=== PATIENT | female | born 1975 | race African-American/Black ===

== ENCOUNTER 2022-06-27 16:19 | Emergency (ER) | payer OTHER ==
[2022-06-27 16:45] VITALS: RESP 18; TEMP 98
--- NOTE | 2022-06-27 17:29 | XR ---
EXAMINATION TYPE: XR toes RT DATE OF EXAM: 06/27/2022 5:12 PM INDICATION: Patient age:Female; 46 years old; Reason for study: pain; COMPARISON: None TECHNIQUE: The right toe was examined in the AP, oblique, and lateral projections. FINDINGS: No evidence of any acute osseous pathology. No evidence of soft tissue swelling. Joints are preserve d. Minimal degeneration changes first digit interphalangeal joint and metatarsophalangeal joint. IMPRESSION: No evidence of acute fracture. Minimal osteoarthrosis changes.
[2022-06-27] MEDS ORDERED: ACETAMINOPHEN TAB 500 MG TAB PO STA (18:38)
--- NOTE | 2022-06-27 18:42 | ED ---
General Adult HPI - General Chief complaint: Extremity Injury, Lower Stated complaint: toe injury, hypertension Time Seen by Provider: 06/27/22 18:25 Source: patient, RN notes reviewed, old records reviewed Mode of arrival: ambulatory Limitations: no limitations - History of Present Illness Initial comments: Patient is a 46-year-old female with past medical history remarkable for hypertension who presents from [place] over concern for stubbing her right big toe. States she started today on the step. She is requesting an x-ray as well as a surgical boot. Denies any other injuries. Endorses pain in her right big toe. Does have normal range of motion of the right big toe. Denies any sensory deficits. No other injuries at this time. - Related Data Allergies Allergy/AdvReac Type Severity Reaction Status Date / Time cephalexin [From Keflex] Allergy Unknown Verified 06/27/22 16:45 ibuprofen Allergy Unknown Verified 06/27/22 16:45 naproxen [From Naprosyn] Allergy Unknown Verified 06/27/22 16:45 Review of Systems ROS Statement: Those systems with pertinent positive or pertinent negative responses have been documented in the HPI. Review of Systems: CONST: Denies fever EYES: Denies blurry vision ENT: Denies nasal congestion C/V: Denies Chest pain RESP: Denies shortness of breath GI: Denies abdominal pain : Denies dysuria SKIN: Denies rash. MSK: Endorses right big toe pain. NEURO: Denies headache ROS Other: All systems not noted in ROS Statement are negative. Past Medical History Past Medical History: Hypertension History of Any Multi-Drug Resistant Organisms: None Reported Past Psychological History: No Psychological Hx Reported Smoking Status: Current every day smoker Past Alcohol Use History: None Reported Past Drug Use History: Cocaine, Marijuana General Exam - General Exam Comments Initial Comments: General: Appears in no acute distress. HEAD: Normal with no signs of head trauma. EYES: EOMI ENT: Normal oropharynx RESPIRATORY: No respiratory distress C/V: Regular rate and rhythm. Peripheral pulses 2+ intact throughout. ABD: Nondistended EXT: Normal range of motion, no obvious deformity. Tenderness to palpation over the distal aspect of the right big toe. SKIN: No rashes or lesions observed on exposed skin. NEURO: Alert and oriented 4. Limitations: no limitations Course Vital Signs 06/27/22 06/27/22 16:41 19:13 Temperature 98 F Pulse Rate 92 81 Respiratory 18 18 Rate Blood Pressure 144/97 149/96 O2 Sat by Pulse 98 98 Oximetry Medical Decision Making - Medical Decision Making Based on the patient's presentation and physical exam, I am concerned for a rig ht big toe injury. X-ray of the right great toe was already obtained while the patient was in triage and was interpreted by myself as revealing no evidence of acute fracture or traumatic injury. I did discuss this finding with the patient. I believe it is safer to be discharged home. She has no neurovascular compromise, and no obvious injury. Possibilities a sprain. She is requesting a surgical shoe which will be provided. She'll also be given dose Tylenol prior to discharge. Vital signs are within acceptable limits. Recommended follow-up with her PCP. Discussed icing it, as well as elevation when not ambulating. She expressed understanding. I instructed the patient to follow up with their PCP in the next 1-3 days. I explained that the patient should return to the emergency department if they experience any worsening symptoms. Strict return precautions were discussed with the patient. The patient expressed understanding of these instructions. I answered all questions that the patient had. The patient was discharged home in good condition with their prescriptions and follow up information. Disposition Clinical Impression: Toe pain Disposition: HOME SELF-CARE Condition: Good Instructions (If sedation given, give patient instructions): Arthralgia (ED) Is patient prescribed a controlled substance at d/c from ED?: No Referrals: None,Stated [Primary Care Provider] - 1-2 days Vanna Haddad MD [REFERRING] - 1-2 days Time of Disposition: 18:40
[2022-06-27 19:14] VITALS: BP 149/96; PULSE 81
== END 2022-06-27 19:14 | disposition home or self-care (01) ==
LOC: EC 16:19
DX: M79.674 Pain in right toe(s) (principal); I10 Essential (primary) hypertension; F17.200 Nicotine dependence, unspecified, uncomplicated; F12.90 Cannabis use, unspecified, uncomplicated; Z88.1 Allergy status to other antibiotic agents; Z88.6 Allergy status to analgesic agent
CPT/HCPCS: 99283

== ENCOUNTER 2022-06-28 21:06 | Emergency (ER) | payer OTHER ==
[2022-06-28 21:31] VITALS: RESP 18
[2022-06-28] MEDS ORDERED: KETOROLAC 15 MG/ML 1 ML VIAL IM STA (21:58)
[2022-06-28] MEDS ORDERED: LIDOCAINE 1% INJ 10MG/ML (30 ML VIAL-PF) SQ STA (21:59)
[2022-06-28] MEDS ORDERED: CLINDAMYCIN 150 MG CAP PO STA (22:29)
--- NOTE | 2022-06-28 23:01 | ED ---
General Adult HPI - General Chief complaint: Skin/Abscess/Foreign Body Stated complaint: Genital cyst Time Seen by Provider: 06/28/22 21:41 Source: patient Mode of arrival: ambulatory Limitations: no limitations - History of Present Illness Initial comments: Patient is a 46-year-old female who presents from [facility] vaginal cyst. Patient noticed cyst 3 days ago which has been growing in size. Patient does report history of cyst in this location. She denies vaginal discharge, burning with urination, increased urinary frequency/urgency. She does not have concern for sexual transmitted infections. Denies fever, chills, nausea, vomiting. Patient does not have a primary care or slasher tender helper. - Related Data Previous Rx's Medication Instructions Recorded Clindamycin [Cleocin] 300 mg PO Q6H 7 Days #56 cap 06/28/22 Allergies Allergy/AdvReac Type Severity Reaction Status Date / Time cephalexin [From Keflex] Allergy Unknown Verified 06/28/22 21:31 ibuprofen Allergy Unknown Verified 06/28/22 21:31 naproxen [From Naprosyn] Allergy Unknown Verified 06/28/22 21:31 Review of Systems ROS Statement: Those systems with pertinent positive or pertinent negative responses have been documented in the HPI. ROS Other: All systems not noted in ROS Statement are negative. Past Medical History Past Medical History: Hypertension History of Any Multi-Drug Resistant Organisms: None Reported Past Psychological History: No Psychological Hx Reported Smoking Status: Current every day smoker Past Alcohol Use History: None Reported Past Drug Use History: Cocaine, Marijuana General Exam Limitations: no limitations General appearance: alert, in no apparent distress Head exam: Present: atraumatic, normocephalic, normal inspection Respiratory exam: Present: normal lung sounds bilaterally. Absent: respiratory distress, wheezes, rales, rhonchi, stridor Cardiovascular Exam: Present: regular rate, normal rhythm, normal heart sounds. Absent: systolic murmur, diastolic murmur, rubs, gallop, clicks External exam: Present: other (2 by 1 cm left bartholin cyst). Absent: lesions Speculum exam: Absent: vaginal discharge Neurological exam: Present: alert, oriented X3, CN II-XII intact Psychiatric exam: Present: normal affect, normal mood Course Vital Signs 06/28/22 21:28 Temperature 98 F Pulse Rate 77 Respiratory 18 Rate Blood Pressure 115/79 O2 Sat by Pulse 100 Oximetry Procedures - Incision & Drainage Site: vulva/vagina Size (cm): 2 Anesthetic Used: lidocaine 1% I&D Cleaning Method: Alcohol Wipe Sterile Field Used?: Yes Scalpel Used: #11 I&D Drainage Obtained: Pus, Blood Culture Obtained?: Yes Medical Decision Making - Medical Decision Making This is a 46-year-old female presenting with a Bartholin's cyst. No systemic symptoms or signs. I performed incision and drainage. Patient declined rivera catheter despite risk of recurrence. Wound culture pending. Patient will be placed on clindamycin. First dose given in the emergency department. She will be sent back to [facility] with a paper prescription. She is referred to gynecology. Dr. Lackey is my attending. Disposition Clinical Impression: Bartholin gland cyst Disposition: HOME SELF-CARE Condition: Good Instructions (If sedation given, give patient instructions): Bartholin Cyst (ED), Incision and Drainage (ED) Additional Instructions: Take antibiotic as directed. Take Tylenol for pain. Keep wound clean and dry. Apply warm compresses and take sitz baths which will aid in drainage. Follow-up with slasher tender helper in 1-2 days. Return to the emergency department if you experience new, concerning, or worsening symptoms. Prescriptions: Clindamycin [Cleocin] 300 mg PO Q6H 7 Days #56 cap Is patient prescribed a controlled substance at d/c from ED?: No Referrals: None,Stated [Primary Care Provider] - 1-2 days Miguel Collins MD [STAFF PHYSICIAN] - 1-2 days
[2022-06-28 23:49] VITALS: BP 114/82; PULSE 83; TEMP 98
== END 2022-06-28 23:48 | disposition home or self-care (01) ==
LOC: EC 21:06
DX: N75.0 Cyst of Bartholin's gland (principal); I10 Essential (primary) hypertension; F17.200 Nicotine dependence, unspecified, uncomplicated; F12.90 Cannabis use, unspecified, uncomplicated; F14.90 Cocaine use, unspecified, uncomplicated; Z88.6 Allergy status to analgesic agent; Z88.8 Allergy status to other drugs, medicaments and biological substances
CPT/HCPCS: 87070; 87205; 99283; 96372 ×2; J3360; J2001; J1885